=== PATIENT | female | born 1995 | race Hispanic/Latino ===

== ENCOUNTER 2022-11-08 08:34 | Emergency (ER) | payer MEDICAID, SELFPAY ==
[2022-11-08] VITALS (10 sets, daily range): BP systolic 104–146; BP diastolic 63–77; PULSE 74–83; RESP 16; TEMP 36.4; O2SAT 98–100
--- NOTE | ~2022-11-08 | US_ITS ---
EXAMINATION: US abdomen limited DATE: 11/08/2022 11:28 INDICATION: Right upper quadrant abdominal pain and nausea TECHNIQUE: Multiple grayscale and Doppler ultrasound images of the abdomen were obtained. COMPARISON: None FINDINGS: The pancreatic head and body are normal in appearance. The pancreatic tail is not visualized. Visual ized proximal inferior vena cava and aorta are normal. Liver has normal echogenicity and contour, wit h a smooth surface. No liver lesion identified. No intrahepatic biliary duct dilation suspected. Port al venous flow was seen in the hepatopetal, normal direction and has normal Doppler waveform. 5 mm hy poechoic nonshadowing likely benign gallbladder polyp along the nondependent wall of the gallbladder fundus. There is some sludge and couple hyperechoic and shadowing gallstones in the dependent portion of the gallbladder. No gallbladder dilation or abnormal wall thickening. The common bile duct measur es 3 mm, which is normal. Sonographic Blevins sign was reported as negative by the shelter supervisor. IMPRESSION: 1. Cholelithiasis. 2. Likely benign 5 mm gallbladder polyp. Reviewed, dictated and finalized at location A.
--- NOTE | 2022-11-08 09:18 | ED.ABDPAIN ---
HPI - Abdominal Pain General Chief Complaint: Abdominal Pain Stated Complaint: early /abd pain Time Seen by Provider: 11/08/22 08:57 Source: patient Mode of arrival: ambulatory Limitations: no limitations History of Present Illness HPI narrative: Patient is a 26 y/o female who presents to the ED with c/o RUQ abdominal pain. Patient is and currently approx 9 weeks gestation. She is seeing NAIMA Zurita with [facility] for [employer] [employer] and has had confirmed IUP via US last week. Patient reports having pain in her right upper quadrant, that began this morning. She reports she has had this pain intermittently previously prior to being . Pain is mild currently. No known aggravating/alleviating factors. She has not taken anything for the pain. Denies ever being diagnosed with gallbladder issues. She reports nausea which she attributes to her . Denies vomiting. Denies diarrhea or constipation. Last bowel movement this morning. Denies urinary symptoms or fevers. Denies vaginal bleeding. Related Data Allergies Allergy/AdvReac Type Severity Reaction Status Date / Time No Known Allergies Allergy Verified 11/08/22 08:43 Review of Systems Review of Systems: CONSTITUTIONAL: Denies fever, chills, or sweats. CARDIOVASCULAR: Denies chest pain. RESPIRATORY: Denies dyspnea. GASTROINTESTINAL: See HPI. GENITOURINARY: Denies vaginal bleeding, dysuria or hematuria. All systems reviewed & are unremarkable except as noted in HPI and below [facility] Past Medical History Medical History (Updated 11/08/22 @ 13:06 by Alexandra Coleman PA-C) No pertinent past medical history Surgical History Surgical History (Updated 11/08/22 @ 09:19 by Alexandra Coleman PA-C) No pertinent past surgical history Social History Social History (Updated 11/08/22 @ 09:19 by Alexandra Coleman PA-C) Smoking status: Never smoker Exam Narrative: GENERAL: Well appearing, obese, non-toxic, in no acute distress. HEAD: Normocephalic, atraumatic. NECK: Supple. No adenopathy, no masses. RESPIRATORY: Airway patent, respirations nonlabored. Clear to auscultation bilaterally, no rales, rhonchi, wheezing. CARDIOVASCULAR: Regular rate and rhythm without murmurs, rubs, or gallops. Peripheral pulses 2+ and equal bilaterally. ABDOMINAL: Soft, focal tenderness in right upper quadrant, no tenderness throughout lower abdomen, nondistended, no hepatosplenomegaly. Normoactive BS. MUSCULOSKELETAL: Moves all extremities. Strength/ROM intact without gross deformities. SKIN: Warm, dry, normal color. No rashes. NEURO: A&O X3. Speech clear. Cranial nerves II-XII grossly intact. Steady gait. No ataxic movements. PSYCHIATRIC: Appropriate mood and affect. Normal interaction. Course Vital Signs Vital signs: Vital Signs Temperature 97.6 F 11/08/22 08:40 Pulse Rate 81 11/08/22 08:40 Respiratory Rate 16 11/08/22 08:40 Blood Pressure 146/70 H 11/08/22 08:40 Pulse Oximetry 100 11/08/22 08:40 Temperature 97.6 F 11/08/22 08:40 Pulse Rate 74 11/08/22 13:01 Respiratory Rate 16 11/08/22 13:01 Blood Pressure 119/77 11/08/22 13:01 Pulse Oximetry 98 11/08/22 13:01 MDM - Abdominal Pain MDM Narrative Medical decision making narrative: Patient presented to ED with right upper quadrant abdominal pain that began this morning, history of intermittent pain in the past. Patient currently , 9 weeks, confirmed IUP. Patient denying any lower abdominal pain, vaginal bleeding, leakage of fluid. Beta quant 120K. Patient with focal right upper quadrant tenderness on exam. No tenderness throughout lower abdomen. CBC with leukocytosis of 14.7, could be in part related to status. CMP with stable kidney function, minimal elevation of ALT, normal AST, bilirubin, alk phos. Lipase within normal limits. Urine appears infected with 2+ leuk esterase, 21-50 WBC, 3+ urine bacteria. Will sen
[2022-11-08 09:26] LABS: Basophils Absolute Auto 0.1 K/mm3 (0.0-0.1); Basophils Percent Auto 0.5 % (0.2-1.2); Eosinophils Percent Auto 0.1 % (0-4.4); Hematocrit 44.1 % (37.0-47.0); Hemoglobin 14.8 g/dL (12.0-15.0); Immature Granulocyte Absolute 0.07 K/mm3 (0.00-0.031); Immature Granulocyte Percent A 0.5 % (0-0.5); Lymphocytes Absolute Auto 1.83 K/mm3 (0.9-3.2); Lymphocytes Percent Auto 12.4 % (18.3-44.2); Mean Corpuscular HGB Conc 33.6 g/dl (32-36); Mean Corpuscular Hemoglobin 30.3 pg (26-34); Mean Corpuscular Volume 90.4 fl (80-100); Mean Platelet Volume 11.9 fl (7.4-10.4); Monocytes Absolute Auto 0.5 K/mm3 (0.1-0.6); Monocytes Percent Auto 3.5 % (2.6-8.5); Neutrophils Absolute Auto 12.2 K/mm3 (1.3-6.7); Platelet Count Result 205 k/mm3 (150-375); Red Blood Count 4.88 M/mm3 (4.2-5.4); Red Cell Distribution Width 12.5 % (11.5-14.5); White Blood Count 14.7 K/mm3 (4.5-10.0)
[2022-11-08 09:35] LABS: Alanine Aminotransferase 45 U/L (6-35); Albumin Level 4.8 g/dL (3.5-5.1); Alkaline Phosphatase 72 U/L (38-126); Anion Gap 10 mmol/L (8-16); Aspartate Amino Transferase 25 U/L (14-36); Bilirubin,Total 0.3 mg/dL (0.2-1.3); Blood Urea Nitrogen 6 mg/dL (7-17); Calcium 9.6 mg/dL (8.4-10.2); Carbon Dioxide 24 mmol/L (22-30); Chloride 105 mmol/L (98-107); Estimated CRCL calculation 146 ml/min; Estimated Glomerular Filt Rate > 60; Glucose 99 mg/dL (65-110); Lipase 37 U/L (23-300); Potassium 3.7 mmol/L (3.4-5.0); Sodium 139 mmol/L (137-145)
[2022-11-08 09:39] LABS: Appearance Urine Turbid (Clear); Bacteria Urine 3+ /hpf; Bilirubin Urine Negative (Negative); Blood Urine Negative (Negative); Color Urine Yellow (Yellow); Glucose Urine UA Negative (Negative); Ketones Urine Negative (Negative); Leukocyte Esterase Ur 2+ LEU/UL (Negative); Need Manual Microscopic Reviewed; Nitrate Urine Negative (Negative); Protein Urine Negative (Negative); Specific Grav Ur 1.012 (1.001-1.035); Squamous Epithelial Cell Urine Many /hpf (Few); Urobilinogen Urine 0.2 mg/dL (<2.0); WBC Urine 21-50 /hpf; pH Urine 6.5 (5.0-9.0)
[2022-11-08 10:04] LABS: Add Urine Microscopic? YES
== END 2022-11-08 13:15 | disposition home or self-care (01) ==
PROVIDERS: Emergency Medicine; Emergency Provider Physician Assistant; PCP Physician Assistant
DX: O23.41 Unspecified infection of urinary tract in pregnancy, first trimester (principal); N39.0 Urinary tract infection, site not specified; Z3A.09 9 weeks gestation of pregnancy; O99.611 Diseases of the digestive system complicating pregnancy, first trimester; K80.20 Calculus of gallbladder without cholecystitis without obstruction
CPT/HCPCS: 36415; 76705; 80053; 81001; 83690; 84702; 85025; 87086; 87088; 99284

== ENCOUNTER 2022-11-12 11:41 | Outpatient (CLI) | payer MEDICAID, SELFPAY ==
[2022-11-12 13:29] LABS: Amylase 76 U/L (30-110)
== END 2022-11-12 11:42 | disposition home or self-care (01) ==
LOC: ANHSURGERY 11:45
PROVIDERS: PCP Physician Assistant; Visit Provider Surgery
DX: K80.50 Calculus of bile duct without cholangitis or cholecystitis without obstruction (principal); Z01.818 Encounter for other preprocedural examination
CPT/HCPCS: 36415; 82150; 86850; 86900; 86901

== ENCOUNTER 2022-11-16 01:37 | Day surgery (SDC) | payer MEDICAID, SELFPAY ==
[2022-11-12 11:57] VITALS: BP 95/77; PULSE 82; RESP 16; TEMP 36.6; O2SAT 100; BMI 32.7
--- NOTE | 2022-11-12 12:18 | PC.NURSE ---
Addendum entered by Jessica Fernandez RN 11/12/22 13:19: INSTRUCTED ON HIBICLENS SHOWER ON MORNING OF SURGERY, FRIEND RELAYS UNDERSTANDING. Original Note: Report to the Outpatient Waiting Room, entrance under the green pavilion located off [facility], at time __7:30AM on date __11/16/22 . Planned Procedure Time: __9:30AM . Time changes happen often and if your time is changed the preop area will call you the afternoon before. - You and your visitor will be asked to self-screen and do not enter if you have any COVID symptoms. - A mask is optional within the hospital at this time. Patients may have clear liquids (water, carbonated beverages, clear teas, apple juice) until 3 hours prior to surgery with a maximum of 20 ounces. - No food from midnight until time of surgery Take the following medications with a SIP of water the morning of surgery: ___NONE DO NOT STOP ANY OF YOUR OTHER PRESCRIPTION MEDICATIONS PRIOR TO SURGERY ?EXCEPT THE FOLLOWING Medications to discontinue per physician ____HOLD ALL VITAMINS/SUPPLEMENTS 3 DAYS PRE-OP PER ANESTHESIA Date to take last dose 11/12/22 Please no make-up, nail divehi, hairspray, perfume, deodorant, or body powder the day of surgery. No jewelry (including any body piercings) or valuables the day of surgery, leave them at home. Please take a shower or bath the night before, or the morning of, surgery with an antibacterial soap. Wear comfortable, loose fitting clothing. Children are encouraged to wear pajamas. - Jewelry must be removed prior to entering the operating room. Rings and piercings that are not removed may be cut off. - The hospital will not accept responsibility for valuables. - Please leave all valuables, including medications, at home the day of surgery. If you are going home after surgery, a licensed ups driver must drive you home. - NO public transportation without another adult if you receive anesthesia. - We recommend that an adult stay with you for 24 hours following discharge. - We also recommend that you do not drive, make important decision, drink alcoholic beverages, or take any drugs that were not prescribed by your health care provider for at least 24 hours after your discharge time. Follow any additional instructions given to you from your surgeon. If you or anyone in your household have experienced Covid symptoms in the past week, please notify your surgeon or the nurse liaison at the phone number below for possible testing. Telephone instructions given to __PATIENT & FRIEND and asked if any additional questions and then verbalized understanding. Patient advised to call surgeon office or pre surgery nurse liaison [phone] if any additional questions.
[2022-11-16] VITALS (11 sets, daily range): BP systolic 110–122; BP diastolic 61–70; PULSE 72–86; RESP 14–18; TEMP 36.3–36.6; O2SAT 97–100
[2022-11-16] MEDS: ACETAMINOPHEN 500 MG TABLET 1000 MG PO (08:13)
[2022-11-16] MEDS: LACTATED RINGERS 1,000 ML 30 ML IV CONT ×2 (08:23→10:39)
--- NOTE | 2022-11-16 08:27 | SUR.PREOP ---
0800 ligia lopez here from ob and attempted heart tone check,unable to dopple,normal for [address] solomon and dr fatima aware.
--- NOTE | 2022-11-16 08:33 | SUR.PREOP ---
talked with pharmasist about medications on order set,holding toradol with contraindication with
--- NOTE | 2022-11-16 08:45 | P.PNAN_ITS ---
Anes - Initial Pre Proc Eval Procedure: Operation Date: 11/16/22 09:30 Proposed Procedures p Laparoscopic Cholecystectomy Possible Open - Ric Antonio MD Date/Time: 11/16/22 08:45 Surgeon: Ric Antonio MD Pre Op Diagnosis: biliary colic, gall stones Patient Data Age: 26 Gender: F Height: 1.62 m Weight: 94.35 kg Last Vital Signs Temp 97.3 F L 11/16/22 07:48 Pulse 86 11/16/22 07:48 Resp 16 11/16/22 07:48 BP 119/67 11/16/22 07:48 Pulse Ox 100 11/16/22 07:48 O2 Del Method Room Air 11/16/22 07:48 Allergies Allergy/AdvReac Type Severity Reaction Status Date / Time No Known Allergies Allergy Verified 11/16/22 08:11 Home Medications Medication Instructions Recorded Confirmed Type cephalexin 500 mg capsule 500 mg PO Q6H 7 days #28 caps 11/08/22 11/16/22 Rx prenat.vits,randi,bka-xhvl-oeloc 1 tablet PO DAILY 11/12/22 11/16/22 History Patient hx anesthesia problems: none Family hx anesthesia problems: none Results Review: All pre-operative results and documents have been reviewed as part of the pre- operative evaluation. [facility] Past Medical History Medical History (Updated 11/11/22 @ 11:15 by Cris Garibay [facility]) HTN (hypertension) No pertinent past medical history Pre-eclampsia Surgical History Surgical History (Updated 11/11/22 @ 10:19 by Nancy Polk) Hx of section No pertinent past surgical history Family History Family History (Updated 11/11/22 @ 10:19 by Nancy Polk) Other Hypertension Social History Social History Smoking status: Never smoker Substance use: never Living arrangements: with family Additional living arrangements comments: BOYFRIEND-CHRIS Spiritual care concerns: No Anes - Eval Final PreProcedure Day of Procedure 11/16/22 08:45 Patient weight: obese Heart: regular rate and rhythm Lungs: clear to auscultation Airway: Mallampati scale class II Neurological: alert and oriented Last oral intake: >/= 8 hours ASA classification: III Emergent: no Anesthetic plan: proceed Anesthesia type and monitoring: general ETT and standard monitoring Results Review: All pre-operative results and documents have been reviewed as part of the pre- operative evaluation. Informed Consent: The patient's anesthetic plan and its attendant risks and benefits were discussed with the patient/family/POA. Questions were solicited and answers provided to the satisfaction of the patient/family/POA.
--- NOTE | 2022-11-16 09:14 | P.HP_ITS ---
H&P: HPI History of Present Illness Date/Time: 11/16/22 09:14 [facility] Past Medical History Medical History (Updated 11/11/22 @ 11:15 by Cris Garibay [facility]) HTN (hypertension) No pertinent past medical history Pre-eclampsia Surgical History Surgical History (Updated 11/11/22 @ 10:19 by Nancy Polk) Hx of section No pertinent past surgical history Family History Family History (Updated 11/11/22 @ 10:19 by Nancy Polk) Other Hypertension Social History Social History Smoking status: Never smoker Substance use: never Living arrangements: with family Additional living arrangements comments: BOYFRIEND-CHRIS Spiritual care concerns: No Meds Home Medications and Allergies Home Medications Medication Instructions Recorded Confirmed Type cephalexin 500 mg capsule 500 mg PO Q6H 7 days #28 caps 11/08/22 11/16/22 Rx prenat.vits,randi,vme-vpkv-okran 1 tablet PO DAILY 11/12/22 11/16/22 History Allergies Allergy/AdvReac Type Severity Reaction Status Date / Time No Known Allergies Allergy Verified 11/16/22 08:11 Vital Signs Vital Signs - 24 hr 11/16/22 07:48 Temperature 36.3 C L Pulse Rate 86 Respiratory Rate 16 Blood Pressure 119/67 Pulse Oximetry 100 Oxygen Delivery Room Air
--- NOTE | 2022-11-16 09:17 | WPDHPUPDATE1 ---
History and Physical Update Update Date/Time: 11/16/22 09:17 History and Physical has been reviewed, including an updated exam of the patient. There are NO changes in the patient's condition. Risks, benefits, and alternatives have been discussed and questions answered. Patient agrees to proceed with procedure.
[2022-11-16] MEDS: ceFAZolin 2 GM/D5W 50 ML 2 GM/50 ML BAG IVPB (09:30)
[2022-11-16] MEDS: BUPivacaine HCL 0.5% PF 30 ML VIAL 9 ML INFILTRATE (10:27)
[2022-11-16] MEDS: LIDO 1%/EPINEPHRINE 1:100,000 50 ML VIAL 9 ML INFILTRATE (10:28)
--- NOTE | 2022-11-16 10:56 | W.PM.PROC2 ---
Procedure Note - Detailed Date of Procedure 11/16/22 Pre-op Diagnosis biliary colic, gall stones Post-op Diagnosis Same Procedure Performed Laparoscopic cholecystectomy Surgeon Ric Antonio MD Mercerizer EVANGELINA Álvarez Anesthesia General Indications Patient is a size 26-year-old female who is about 10 weeks . She has been having issues with nausea right upper quadrant pain after eating a. She did not have this problem with her prior pregnancies. Abdominal ultrasound showed gallbladder sludge and possible small gallstones. No gallbladder wall thickening was noted. I recommended that she undergo a for scopic cholecystectomy possible conversion open cholecystectomy before she is through with her first-trimester . And her a she will continue having symptoms from her gallbladder in the future during this and so before 12 weeks gestation would be optimal time to perform a laparoscopic cholecystectomy on a patient. Findings Gallbladder was distended but without any gallbladder wall thickening and no adhesions to the gallbladder. No acute inflammatory changes were seen. Description of Procedure After informed consent was obtained patient brought to the operating room she is placed in supine position and general endotracheal anesthesia was administered. The abdomen is then prepped and draped in usual sterile fashion. A time-out was then performed correctly identifying the patient as well as procedure to be performed verifying preoperative IV antibiotics. I then entered the abdomen the left upper quadrant utilizing a 5mm Optiview port with a direct optical insertion. Once inside the abdomen insufflated the abdomen pneumoperitoneum 15mm Hg of CO2. No adhesions were noted around the umbilicus were placed a 5mm Optiview port at the periumbilical port site. Laparoscopic then switched over to this port site and then looking to the upper portion of the abdomen placed an epigastric 10mm trocar port and 2 right lateral subcostal 5mm trocar ports all under direct visualization. The gallbladder was well with a grasper at the dome and elevated over the right hemithorax was right shoulder. A 2nd grasper used to hold the gallbladder at the infundibulum. I then proceeded to strip down the visceroperitoneum of the infundibular gallbladder identified the cystic duct. The cystic duct was dissected out circumferentially. The cystic artery was identified was dissected out circumferentially as well. The posterior wall the gallbladder at the infundibulum dissected free liver to critical view was obtained. At this point I then placed 2 clips proximal cystic duct 2 clips distally high on infundibular gallbladder. Cystic duct was divided with Endo Daniel. In similar fashion cystic artery is clipped and divided as well. The gallbladder was then resected off the liver electrocautery. At 1 point there was some spillage of some gallbladder sludge in bile. I aspirated this from the abdomen quickly as I could. Once the gallbladder completely freed from the liver is placed into an Endo-Catch bag and brought out the epigastric port site. The gallbladder and the remaining contents within were sent to pathology for examination. I then irrigated the right upper quadrant the abdomen gallbladder fossa copious sterile saline solution. Hemostasis was excellent. I then aspirated the fluid from the right upper quadrant the abdomen from the pelvis. And removed all the trocar ports under visualization of port sites appeared hemostatic. I then allowed the abdomen decompressed. I then irrigated out ports a sterile saline solution hemostasis was good. Then closed the port sites at the skin level utilizing a running subcuticular 4 Monocryl suture. Incisions were then cleaned and skin glue and dry sterile dressings were applied. The patient tolerated the procedure well no complications. All sponges, needles, and instrument counts were correct a
[2022-11-16] MEDS: fentaNYL CITRATE INJ (*CRX) 100 MCG/2 ML VIAL 25 MCG IV PUSH ×6 (11:06→13:28)
[2022-11-16] MEDS: oxyCODONE HCL (*CRX) 5 MG TAB IR PO (12:12)
--- NOTE | 2022-11-16 12:42 | SUR.PHASEII ---
Addendum entered by Fransisca Thompson RN 11/16/22 13:06: error in charting: patient is not ready for discharge. Original Note: [id number]: Report received from Evelyn TARANGO. Patient has received and signed discharge paperwork. Wants to wait a few more minutes before being wheeled out for discharge.
== END 2022-11-16 14:40 | disposition home or self-care (01) ==
PROVIDERS: PCP Physician Assistant; Visit Provider Surgery
PROC: 0FT44ZZ Resection of Gallbladder, Percutaneous Endoscopic Approach (ICD-10-PCS; CPT 47562; principal; 2022-11-16 09:30)
DX: O99.611 Diseases of the digestive system complicating pregnancy, first trimester (principal); K81.1 Chronic cholecystitis; Z3A.09 9 weeks gestation of pregnancy
CPT/HCPCS: 47562; 88304; A9270; C1713; J0690; J1100; J2405; J2704; J2710; J3010; J7030; J7120